=== PATIENT | male | born 1975 | race Caucasian/White ===

== ENCOUNTER 2017-07-29 16:19 | Emergency (ER) | payer OTHER ==
[~2017-07-29] VITALS: Ht 182.9 cm; Wt 102.1 kg
[~2017-07-29 16:19] MED LIST: ALBU90I INH; ALBU90OI INH; AMOCLA500 PO; AMOX500 PO; ANTOXYBENA OT; BENZ100A PO; BRIM.15SO OD; BUPR150T2 PO; CODGUAEL PO; CYCL10 PO; DOXY100 PO; ERYT.5TO OD; FLUO20 PO; GENT.3OPSA OD; HYDACE5 PO; KETO10 PO; MECL25 PO; METPRE4DP PO; NEOPOLHCSU OT; OFLO.3OTSO AU; OXYACE5T PO; PRED20 PO; PROM25 PO; PROP10 PO; RXCLIN PO; RXTRAM50 PO; SPACER IH; TRAM50 PO; TRAZ50 PO
[2017-07-29] MEDS ORDERED: L-METHYLFOLATE15 M1 PO (17:59)
[2017-07-29] MEDS ORDERED: INVEGA SUS156 MG/1 M IM (17:59)
[2017-07-29] MEDS ORDERED: Omeprazole20 M1 PO (18:00)
[2017-07-29] MEDS ORDERED: Budeprion Xl300 MG PO (18:00)
[2017-07-29] MEDS ORDERED: CRUTCH4 XX (18:21)
== END 2017-07-29 18:25 | disposition home or self-care (01) ==
LOC: ER 16:19
DX: S93.401A Sprain of unspecified ligament of right ankle, initial encounter (principal); F17.200 Nicotine dependence, unspecified, uncomplicated; Z88.8 Allergy status to other drugs, medicaments and biological substances; Z79.899 Other long term (current) drug therapy; W01.0XXA Fall on same level from slipping, tripping and stumbling without subsequent striking against object, initial encounter
CPT/HCPCS: 73610; 99283